=== PATIENT | female | born 1995 | race Caucasian/White ===

== ENCOUNTER 2021-10-31 | Emergency (ER) | payer MEDICAID ==
[~2021-10-31] VITALS: Ht 157.5 cm; Wt 52.7 kg
[2021-10-31 00:06] VITALS: BP 99/61
== END 2021-10-31 02:15 | disposition left against medical advice (07) ==
LOC: ER 00:03
DX: K08.89 Other specified disorders of teeth and supporting structures (principal); Z53.21 Procedure and treatment not carried out due to patient leaving prior to being seen by health care provider